=== PATIENT | male | born 1955 ===

== ENCOUNTER 2024-06-22 12:27 | Emergency (ER) | payer MEDICARE, SELFPAY ==
[2024-06-22 12:45] VITALS: BMI 24.1
[2024-06-22 12:46] VITALS: BP 128/84
--- NOTE | 2024-06-22 12:58 | ED.GENMED ---
History of Present Illness
General
Chief Complaint: Overdose Intentional
Source: patient
Time Seen by Provider: 06/22/24 12:39
History of Present Illness
History of Present Illness:
68-year-old male presents to the emergency room via ambulance for treatment of an overdose. Patient took an unknown number of Ambien. The bottle was filled about 1 year ago but unknown how many pills were in it. Pt did take whatever pills were in
the bottle. Paramedics concerned this was a suicide attempt. Family here with the pt denies suicide attempt but rather pt took pills to sleep because he has been having insomnia. Patient is being treated for a brain mass. He has had chemo,
radiation and surgery over the past 3 years. Patient denies any other ingestions.
Past History
Past History
ED Past Medical History: HTN
ED Past Surgical History: None
Social History
Personal:
Living: with family
Family History
Family History: Other
Phy Exam
Physical Exam
Physical Exam:
General: Sleepy but arousable
Vitals: unremarkable
Head: Atraumatic
Eyes: Pupils equal, EOMI
Throat: Airway intact, no exudates
Neck: Trachea midline
Lungs: Clear and equal b/l
Heart: Regular rate, no murmurs
Abd: Soft, Nontender, No pulsatile mass
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
Skin: Warm, dry, no rash
Extremities: pulses equal b/l, no edema
Course
Orders/Labs/Results
Orders:
Orders
06/22/24 12:39
EKG [Electrocardiogram (*1)] Urgent
Reason for Study: Other
Other Reason for Exam: overdose
06/22/24 12:40
EKG- Treatment ONCE
06/22/24 12:50
1:1 Observation - Suicide/ Violent Behavior As Directed
Crisis Consult Urgent
Reason for Consult: SI
06/22/24 12:57
Acetaminophen Urgent
Complete Blood Count/With Diff Urgent
Comprehensive Metabolic Panel Urgent
Salicylate Urgent
06/22/24 14:13
Urine Drug Abuse Screen Urgent
Date Specimen was Collected: 06/22/24
Time Specimen was Collected: 14:07
Abnormal Lab Results
06/22/24
12:57
RBC 4.42 L 10^6/uL
(4.70-6.10)
MCHC 32.5 L g/dL
(33.0-37.0)
MPV 11.3 H fL
(7.4-10.4)
Absolute Neuts (auto) 7.1 H 10^3/uL
(1.4-6.5)
Absolute Lymphs (auto) 1.0 L 10^3/uL
(1.2-3.4)
Neutrophils % 80.0 H %
(42.2-75.2)
Lymphocytes % 11.5 L %
(20.5-51.1)
BUN 22 H mg/dl
(9-20)
Glucose 101 H mg/dl
(70-99)
Salicylates < 1.0 L mg/dl
(2.0-20.0)
Acetaminophen < 10 L ug/ml
(10-30)
06/22/24 12:57
06/22/24 12:57
Vital Signs
Initial and Last Documented VS:
Initial Vital Signs
Pulse Resp Pulse Ox
74 16 98
06/22/24 12:39 06/22/24 12:39 06/22/24 12:39
Last Documented Vital Signs
Pulse Resp BP Pulse Ox
80 11 124/80 96
06/22/24 17:00 06/22/24 16:45 06/22/24 17:00 06/22/24 16:45
MDM/Problems Addressed
Differential Diagnosis Includes:
Polypharmacy overdose, accidental ingestion, suicide attempt
MDM/Problems Addressed:
Patient presents after ingesting an excessive amount of Ambien. He was sleepy here but never unarousable. Mental status improved throughout his period of observation. Patient's granddaughter here. She denies this being a suicide attempt.
Patient denies this as well. Unclear really what the circumstances were but given the patient has progressed brain cancer, lives with his family who will be managing his meds I do not feel its appropriate to have this gentleman placed for inpatient
psychiatric treatment. Strongly suspect this was a accidental ingestion. We will discharge the patient home to the care of his family.
*Pulse Oximetry
Patient hypoxic: no
*EKG
Interpreted by ED Provider?: Yes
Interpretation: normal
Heart Rate: 76
Rate: normal
Rhythm: sinus
[place]: normal axis
Interval: normal interval
QRS Pattern: normal QRS
Ischemia: no ischemia
*Critical Care Note
Total Time (30-74mins, 75-104mins- exclusive of procedures): Not Applicable
ED Attending Note
-
Portions of this chart may have been created with voice recognition software.� Occasional wrong word or��sound alike� substitutions may have occurred due to the inherent limitations of voice recognition software.
Discharge Plan
Departure
Patient Disposition: Home (Routine Discharge)
Date of Disposition: 06/22/24
Time of Disposition: 16:54
Patient with high blood pressure during this ER visit?: Yes
Condition: Good
Discharge Problem:
Accidental overdose
Instructions: Accidental Overdose, Adult ED, BLOOD PRESSURE
Prescriptions:
No Action
aspirin [Ecotrin Low Strength] 81 MG tablet,delayed release (DR/EC)
81 mg PO DAILY
lisinopril 2.5 MG tablet
2.5 mg PO DAILY
Interventions
Interventions:
*Risk Screen - Suicide Last Done: 06/22/24 12:47
*General Assessment Last Done: 06/22/24 12:41
*Neglect/Abuse Screening Last Done: 06/22/24 12:47
ED- Fall Risk Assessment Last Done: 06/22/24 12:52
*ED COVID-19 Vaccine History Last Done: 06/22/24 12:41
*Nursing Disposition Last Done: 06/22/24 17:29
ED- Cardiac Assessment Last Done: 06/22/24 12:50
ED- Neurological Assessment Last Done: 06/22/24 12:50
ED-Psychological Assessment Last Done: 06/22/24 12:50
ED- Pulmonary Assessment Last Done: 06/22/24 12:50
Discharge Date and Time
Discharge Date/Time: 06/22/24 17:29
Print Language: LITHUANIAN
[2024-06-22 13:00] VITALS: BP 136/83
[2024-06-22 13:24] LABS: ALT (SGPT) 19 U/L (0-50); AST (SGOT) 25 U/L (17-59); Acetaminophen < 10 ug/ml (10-30); Albumin 4.2 g/dl (3.5-5.0); Alkaline Phosphatase 61 U/L (38-126); Blood Urea Nitrogen 22 mg/dl (9-20); Calcium 9.5 mg/dl (8.4-10.2); Carbon Dioxide 27 mmol/L (22-30); Chloride 104 mmol/L (98-107); Estimated Creatinine Clearance 95 ml/min; Glucose 101 mg/dl (70-99); Salicylate < 1.0 mg/dl (2.0-20.0); Sodium 139 mmol/L (135-145); Total Bilirubin 0.8 mg/dl (0.2-1.3); Total Protein 6.9 g/dl (6.3-8.2); eGFR > 60.00
[2024-06-22 13:48] LABS: % Basophils 0.2 % (0-2); % Eosinophils 0.6 % (0-6); % Immature Granulocytes 0.5 % (0-0.5); % Lymphocytes 11.5 % (20.5-51.1); % Monocytes 7.2 % (1.7-9.3); Absolute Eosinophils 0.1 10^3/uL (0-0.7); Absolute Monocytes 0.6 10^3/uL (0.1-0.6); Absolute Neutrophils 7.1 10^3/uL (1.4-6.5); Hematocrit 40.9 % (39.0-52.0); Hemoglobin 13.3 g/dL (13.0-18.0); Mean Corp Hgb Conc. 32.5 g/dL (33.0-37.0); Mean Corpuscular Hgb 30.1 pg (27.0-31.0); Mean Corpuscular Volume 92.5 fL (80.0-94.0); Mean Platelet Volume 11.3 fL (7.4-10.4); Nucleated Red Blood Cells % 0 % (-); Platelet Count 151 10^3/uL (130-400); Red Blood Cell Count 4.42 10^6/uL (4.70-6.10); Red Cell Dist. Width 12.7 % (11.5-14.5); White Blood Cell Count 8.9 10^3/uL (4.8-10.8)
[2024-06-22 14:00] VITALS: BP 126/87
[2024-06-22 14:49] LABS: Amphetamines Negative (Negative); Barbiturates Negative (Negative); Benzodiazepines Negative (Negative); Buprenorphine Negative (Negative); Cocaine Negative (Negative); Marijuana Negative (Negative); Methadone Negative (Negative); Methamphetamines Negative (Negative); Opiates Negative (Negative); Phencyclidine Negative (Negative); Tricyclic Antidepressants Negative (Negative)
[2024-06-22 15:00] VITALS: BP 122/79
[2024-06-22 16:00] VITALS: BP 119/84
[2024-06-22 17:00] VITALS: BP 124/80
== END 2024-06-22 17:29 | disposition home or self-care (01) ==
LOC: EMR 12:27
PROVIDERS: EMERGENCY PHYSICIAN Emergency Medicine; FAMILY PHYSICIAN Internal Medicine Cardiovascular Disease
DX: T42.6X1A Poisoning by other antiepileptic and sedative-hypnotic drugs, accidental (unintentional), initial encounter (principal); G47.00 Insomnia, unspecified; I10 Essential (primary) hypertension
CPT/HCPCS: 99284; 80053; 80143; 80179; 80306; 85025; 93005